=== PATIENT | male | born 1975 | race Caucasian/White ===

== ENCOUNTER 2016-07-25 22:21 | Emergency (ER) | payer OTHER ==
[~2016-07-25 22:21] MED LIST: HYDR50CA PO; QUET200T PO
[2016-07-25 22:35] VITALS: BP 135/75; PULSE 117; RESP 20; O2SAT 98
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
[2016-07-25] MEDS ORDERED: Haloperidol 5 mg/mL Inj IM ONE (23:00)
[2016-07-25 23:02] LABS: APPEARANCE,URINE CLEAR (CLEAR,HAZY); COLOR,URINE YELLOW (YELLOW); PH,URINE 6.5 (5.0-8.0)
[2016-07-25 23:03] LABS: OCCULT BLOOD,URINE TRACE (NEGATIVE)
[2016-07-25 23:31] LABS: BASOPHILS % (AUTO) 0.2 % (0-3); EOSINOPHILS % (AUTO) 1.9 % (0-5); MONOCYTES % (AUTO) 8.6 % (4-12); Mean Corpuscular Hemoglobin 28.2 pg (27.0-35.0); Mean Corpuscular Volume 83.7 fL (81-100); NEUTROPHILS % (AUTO) 74.2 % (40-74); Platelet Count 278 bil/L (150-400)
[2016-07-26 00:12] LABS: Magnesium 2.2 mg/dL (1.6-2.6)
[2016-07-26 01:44] VITALS: BP 118/81; PULSE 84; O2SAT 95
[2016-07-26 05:31] VITALS: BP 104/64; PULSE 71; RESP 20; O2SAT 98
[2016-07-26 08:59] VITALS: BP 114/60; PULSE 110; RESP 18; O2SAT 100
== END 2016-07-26 10:35 ==
LOC: SED 22:21
DX: F15.251 Other stimulant dependence with stimulant-induced psychotic disorder with hallucinations (principal); F41.9 Anxiety disorder, unspecified; Z87.820 Personal history of traumatic brain injury
CPT/HCPCS: 36415; 80053; 81000; 82075; 82140; 83735; 84443; 85025; 96372; 99285; G0480; J1630; J2060